=== PATIENT | female | born 1980 | race Caucasian/White ===

== ENCOUNTER 2019-07-14 16:48 | Emergency (ER) | payer OTHER ==
--- NOTE | 2019-07-14 18:12 | EDM.PDOC ---
ED HPI GENERAL MEDICAL PROBLEM - General Chief Complaint: Neurological Problem Stated Complaint: SEIZURE Time Seen by Provider: 07/14/19 18:00 Source of Information: Reports: Patient, Family History Limitations: Reports: No Limitations - History of Present Illness INITIAL COMMENTS - FREE TEXT/NARRATIVE: 39-year-old female was a passenger traveling nearby which she felt something was "wrong" and went into generalized seizure like activity witnessed by her . Her whole body tightened, she clenched her teeth and was drooling. He pulled over and went around and tried to arouse her and by that time she had relaxed but was confused and postictal for several minutes. She has been sick over the last 2 days with nausea and vomiting, appears very anxious and has a significant generalized resting tremor. She is being treated for an ongoing sinus infection for the past "months" with antibiotics. She denies any recreational drug use. She has a mild headache today, does not complain of recent headaches or fevers. Onset: Sudden Duration: Hour(s): (1 hour ago) Associated Symptoms: Reports: Headaches, Nausea/Vomiting. Denies: Chest Pain, Shortness of Breath Headache Pain Score (Numeric/FACES): 6 - Related Data Allergies Allergy/AdvReac Type Severity Reaction Status Date / Time amoxicillin Allergy Hives Verified 07/14/19 17:22 Home Meds: Home Meds Azithromycin 250 mg PO DAILY 07/14/19 [History] Sertraline [Zoloft] 25 mg PO DAILY 07/14/19 [History] Past Medical History Psychiatric History: Reports: Anxiety Social & Family History - Tobacco Use Smoking Status *Q: Never Smoker - Caffeine Use Caffeine Use: Reports: None - Recreational Drug Use Recreational Drug Use: No ED ROS GENERAL - Review of Systems Review Of Systems: See Below Constitutional: Reports: Malaise. Denies: Fever, Chills HEENT: Reports: Other (Ongoing sinus pressure) Respiratory: Denies: Shortness of Breath Cardiovascular: Denies: Chest Pain, Palpitations GI/Abdominal: Reports: Nausea, Vomiting. Denies: Abdominal Pain, Constipation, Diarrhea : Reports: Other (Claims her urine is "dark") Skin: Reports: No Symptoms. Denies: Jaundice Neurological: Reports: Headache (Mild frontal headache) - Physical Exam Exam: See Below Exam Limited By: No Limitations General Appearance: Alert, No Apparent Distress, Anxious (Looks extremely anxious, significant generalized resting tremor) Eye Exam: Bilateral Eye: EOMI Head Exam: Atraumatic Neck: Supple Respiratory/Chest: Lungs Clear Cardiovascular: Regular Rate, Rhythm, No Murmur Neuro Exam (Abbreviated): Alert, Oriented, No Motor/Sensory Deficits, Other ( Romberg is negative, no pronator drift. Generalized resting tremor is present) Psychiatric: Anxious Skin Exam: Warm, Dry Course - Vital Signs Last Recorded V/S: Last Vital Signs Temp 98.3 F 07/14/19 17:32 Pulse 105 H 07/14/19 17:32 Resp 17 07/14/19 17:32 BP 111/77 07/14/19 17:32 Pulse Ox - Orders/Labs/Meds Orders: Active Orders 24 hr Category Date Time Status Orthostatic Vital Signs [RC] ASDIRECTED Care 07/14/19 17:37 Active Labs: Laboratory Tests 07/14/19 07/14/19 Range/Units 18:17 18:17 WBC 8.7 (4.5-11.0) K/uL RBC 4.51 (3.30-5.50) M/uL Hgb 14.9 (12.0-15.0) g/dL Hct 44.9 (36.0-48.0) % MCV 100 H (80-98) fL MCH 33 H (27-31) pg MCHC 33 (32-36) % Plt Count 134 L (150-400) K/uL Neut % (Auto) 78 H (36-66) % Lymph % (Auto) 9 L (24-44) % [place] % (Auto) 12 H (2-6) % Eos % (Auto) 0 L (2-4) % Baso % (Auto) 1 (0-1) % Sodium 137 L (140-148) mmol/L Potassium 3.3 L (3.6-5.2) mmol/L Chloride 97 L (100-108) mmol/L Carbon Dioxide 25 (21-32) mmol/L Anion Gap 18.3 H (5.0-14.0) mmol/L BUN 15 (7-18) mg/dL Creatinine 0.6 (0.6-1.0) mg/dL Est Cr Clr Drug Dosing 117.84 mL/min Estimated GFR (MDRD) > 60 (>60) Glucose 95 (74-106) mg/dL Calcium 8.4 L (8.5-10.1) mg/dL Total Bilirubin 2.2 H (0.2-1.0) mg/dL AST 118 H (15-37) U/L ALT 113 H (12-78) U/L Alkaline Phosphatase 79 (46-116) U/L Total Protein 8.5 H (6.4-8.2) g/dL Albumin 4.2 (3.4-5.0) g/dL Globulin 4.3 H (2.3-3.5) g/dL Albumin/Globulin Ratio 1.0 L (1.2-2.2) Meds: Medications Discontinued Medications Generic Name Dose Route Start Last Admin Trade Name Freq PRN Reason Stop Dose Admin Sodium Chloride 1,000 mls @ 1,000 mls/hr 07/14/19 18:15 07/14/19 18:16 Normal Saline IV 1,000 mls/hr ASDIRECTED FOR[facility], 1928–1983 Administration - Re-Assessments/Exams Free Text/Narrative Re-Assessment/Exam: 07/14/19 18:12 An IV will be started and the patient will be bolused with 1 L normal saline. CBC and CMP will be obtained as well as a noncontrast head CT. 07/14/19 19:16 CT is negative, CBC shows an elevated MCV, mildly low platelets, CMP elevated liver enzymes and bilirubin. Patient admits to fairly regular alcohol use. This is likely alcohol withdrawal, she will be discharged with 10 doses of Ativan to be administered by her until she can get detox at home. Departure - Departure Time of Disposition: 19:38 Disposition: Home, Self-Care 01 Clinical Impression: Alcohol withdrawal seizure Qualifiers: Complication of substance-induced condition: uncomplicated Qualified Code(s): F10.230 - Alcohol dependence with withdrawal, uncomplicated - Discharge Information Instructions: Alcohol Use Disorder Referrals: PCP,None [Primary Care Provider] - Forms: ED Department Discharge Care Plan Goals: Stay hydrated with lots of water, use Ativan as prescribed to help with withdrawal symptoms. Strongly consider getting more help as soon as possible. Sepsis Event Note - Evaluation Sepsis Screening Result: No Definite Risk - Focused Exam Vital Signs: Vital Signs Temp Pulse Resp BP 07/14/19 17:32 98.3 F 105 H 17 111/77 Date Exam was Performed: 07/14/19 Time Exam was Performed: 19:52
[2019-07-14] MEDS ORDERED: Sodium Chloride 0.9% 1,000 ML IV SCH (18:15)
--- NOTE | 2019-07-14 19:35 | CRLCT ---
INDICATION: first time seizure COMPARISON: None. TECHNIQUE: Routine noncontrast axial CT images of the head. Coronal reformatted series was also generated and reviewed. - Total exam DLP 725 mGy-cm. FINDINGS: The workman/white matter differentiation is preserved throughout. There is no evidence of intracranial mass or hemorrhage. No abnormal extra-axial fluid collection. No herniation or hydrocephalus. The visualized orbital contents are unremarkable. Minimal ethmoid sinus disease. Mastoid air cells are clear. The skull and scalp are intact. IMPRESSION: No acute intracranial findings. Dictated by Joel Lynn MD @ 07/14/2019 7:34:36 PM Please note that all CT scans at this facility use dose modulation, iterative reconstruction, and/or weight-based dosing when appropriate to reduce radiation dose to as low as reasonably achievable. Dictated by: Joel Lynn MD @ 07/14/2019 19:34:41 (Electronically Signed)
== END 2019-07-14 19:37 | disposition home or self-care (01) ==
LOC: JP.ED 16:48
DX: F10.230 Alcohol dependence with withdrawal, uncomplicated (principal); F41.9 Anxiety disorder, unspecified; Z79.899 Other long term (current) drug therapy; Z88.1 Allergy status to other antibiotic agents
CPT/HCPCS: 36415; 70450; 80053; 85025; 96360; 99285-25; J7030